=== PATIENT | male | born 1990 | race Caucasian/White ===

== ENCOUNTER 2016-11-07 14:45 | Emergency (ER) | payer MEDICAID, OTHER ==
[2016-11-07 15:13] VITALS: BP 146/81
== END 2016-11-07 15:48 | disposition home or self-care (01) ==
LOC: ER 14:54
DX: K02.9 Dental caries, unspecified (principal); Z91.030 Bee allergy status

== ENCOUNTER 2018-03-12 14:31 | Emergency (ER) | payer MEDICAID ==
[~2018-03-12] VITALS: Ht 185.4 cm; Wt 90.7 kg
[2018-03-12 16:04] VITALS: BP 128/83
[2018-03-12] MEDS ORDERED: KETOROLAC TROMETH 60MG/2ML VIAL IM ONE (16:15)
[2018-03-12] MEDS ORDERED: cefTRIAXone SOD 1,000 MG VL IM ONE (16:15)
== END 2018-03-12 16:49 | disposition home or self-care (01) ==
LOC: ER 14:31
DX: K05.10 Chronic gingivitis, plaque induced (principal); Z88.8 Allergy status to other drugs, medicaments and biological substances
CPT/HCPCS: 96372; 99284; J0696; J1885

== ENCOUNTER 2018-11-07 14:35 | Emergency (ER) | payer MEDICAID ==
[~2018-11-07] VITALS: Ht 185.4 cm; Wt 83.9 kg
[2018-11-07 16:00] VITALS: BP 138/75
== END 2018-11-07 16:07 | disposition home or self-care (01) ==
LOC: ER 14:35
DX: K04.7 Periapical abscess without sinus (principal)

== ENCOUNTER 2019-02-05 07:14 | Emergency (ER) | payer MEDICAID ==
[~2019-02-05] VITALS: Ht 185.4 cm; Wt 81.6 kg
[2019-02-05 08:12] VITALS: BP 142/94
[2019-02-05] MEDS: cefTRIAXone SOD 1,000 MG VL IM ONE (09:13)
== END 2019-02-05 10:11 | disposition home or self-care (01) ==
LOC: ER 07:14
DX: K12.2 Cellulitis and abscess of mouth (principal); K02.9 Dental caries, unspecified
CPT/HCPCS: 70486; 96372; 99284; J0696

== ENCOUNTER 2019-08-29 09:30 | Emergency (ER) | payer MEDICAID ==
[~2019-08-29] VITALS: Ht 185.4 cm; Wt 90.7 kg
[2019-08-29 09:37] VITALS: BP 135/90
[2019-08-29] MEDS ORDERED: cefTRIAXone SOD 1,000 MG VL IM ONE (10:15)
[2019-08-29] MEDS ORDERED: KETOROLAC TROMETH 60MG/2ML VIAL IM ONE (10:15)
== END 2019-08-29 10:37 | disposition home or self-care (01) ==
LOC: ER 09:30
DX: K04.7 Periapical abscess without sinus (principal)
CPT/HCPCS: 96372; 99283; J0696; J1885